=== PATIENT | female | born 1925 | race Caucasian/White ===

== ENCOUNTER → 2016-07-05 | Outpatient (CLI) | payer MEDICARE, BC ==
[~2016-07-05] MED LIST: ALBUTEROL0.09 MG/A2 PO; ALDACTONE25 MG PO; ANTIVERT25 MG PO; BUMEX1 MG PO; CEFTIN500 MG PO; COUMADIN2 MG PO; COUMADIN5 M2 PO; CYMBALTA30 MG PO; CYMBALTA60 MG PO; Coumadin5 MG PO; DIGOXIN0.125 MG; DILTIAZEM ER240 MG PO; DILTIAZEM240 MG PO; FLECAINIDE ACE100 MG PO; KLOR-CON20 MEQ PO; LANOXIN0.125 MG PO; LASIX20 MG PO; LOPRESSOR25 MG PO; MACROBID100 M1 PO; NORTHYX10 MG PO; ZESTRIL10 MG PO; ZITHROMAX250 MG PO; [UNRECOGNIZED DRUG - REMARK]
== END | disposition home or self-care (01) ==
LOC: LAB 10:41
DX: Z51.81 Encounter for therapeutic drug level monitoring (principal); Z79.899 Other long term (current) drug therapy

== ENCOUNTER → 2016-09-21 | Outpatient (CLI) | payer MEDICARE, BC ==
[2016-09-21 15:57] LABS: BILIRUBIN NEGATIVE (NEGATIVE); BLOOD 1+ (NEGATIVE); CLARITY CLOUDY (CLEAR); COLOR YELLOW (YELLOW); GLUCOSE NEGATIVE (NEGATIVE); KETONE NEGATIVE (NEGATIVE); LEUKO ESTERASE 2+ (NEGATIVE); NITRITE NEGATIVE (NEGATIVE); PROTEIN TRACE (NEGATIVE); SPECIFIC GRAVITY 1.015 (1.005-1.030); UROBILINOGEN 0.2 E.U./dl (0.2-1.0)
[2016-09-21 16:05] LABS: BACTERIA 4+; WBC TNTC wbc/hpf (0-5)
[2016-09-21 16:07] LABS: ALBUMIN 3.3 gm/dl (3.1-4.5); BILIRUBIN, DIRECT 0.1 mg/dL (0.0-0.2); BILIRUBIN, TOTAL 0.4 mg/dl (0.2-1.0); POTASSIUM 4.7 mmol/L (3.5-5.1); TOTAL PROTEIN 6.5 gm/dL (6.4-8.2)
[2016-09-21 16:09] LABS: FREE T4 0.95 ng/dl (0.76-1.46)
[2016-09-21 16:15] LABS: THYROID STIM HORMONE (HS) 1.21 uIU/ml (0.358-4.75)
[2016-09-21 16:18] LABS: HEMOGLOBIN A1c 6.9 % (4.8-5.6)
== END | disposition home or self-care (01) ==
LOC: LAB 14:57
PROVIDERS: Internal Medicine
DX: E05.90 Thyrotoxicosis, unspecified without thyrotoxic crisis or storm (principal); E11.9 Type 2 diabetes mellitus without complications; E55.9 Vitamin D deficiency, unspecified

== ENCOUNTER → 2016-09-23 | Outpatient (CLI) | payer MEDICARE, BC ==
[2016-09-23 14:39] LABS: BILIRUBIN NEGATIVE (NEGATIVE); BLOOD TRACE-INTACT (NEGATIVE); CLARITY SL CLOUDY (CLEAR); COLOR YELLOW (YELLOW); GLUCOSE NEGATIVE (NEGATIVE); KETONE NEGATIVE (NEGATIVE); LEUKO ESTERASE 2+ (NEGATIVE); NITRITE NEGATIVE (NEGATIVE); PH 5.5 (5.0-9.0); PROTEIN NEGATIVE (NEGATIVE); UROBILINOGEN 0.2 E.U./dl (0.2-1.0)
[2016-09-23 15:05] LABS: BACTERIA 1+; WBC 31-40 wbc/hpf (0-5)
== END | disposition home or self-care (01) ==
LOC: LAB 13:58
PROVIDERS: Specialist
DX: R31.9 Hematuria, unspecified (principal)